=== PATIENT | female | born 1955 | race Caucasian/White ===

== ENCOUNTER → 2016-10-30 | Outpatient (CLI) | payer OTHER ==
[~2016-10-30] MED LIST: ARIPIPRAZOLE2 MG PO; BELSOMRA20 MG PO; BRINTELLIX10 MG PO; COLACE100 MG PO; CRANBERRY TABL1 EACH PO; FEOSOL325 MG PO; KLONOPIN1 MG PO; MIRALAX17 GM PO; SEROQUEL XR200 MG PO; SEROQUEL200 MG PO; VITAMIN B-121000 MCG PO; VITAMIN D35000 UNI1 PO
== END ==
LOC: GRAD 10-27 13:00 → GBCOE 12:06 → GRAD 12:30
DX: Z12.31 Encounter for screening mammogram for malignant neoplasm of breast (principal)
CPT/HCPCS: G0202

== ENCOUNTER → 2016-12-08 | Outpatient (CLI) | payer OTHER | LOC: GBCOE 07:00 | DX: D64.9 Anemia, unspecified (principal); Z79.899 Other long term (current) drug therapy; Z87.81 Personal history of (healed) traumatic fracture; Z86.39 Personal history of other endocrine, nutritional and metabolic disease; E53.8 Deficiency of other specified B group vitamins; M81.0 Age-related osteoporosis without current pathological fracture ==